=== PATIENT | male | born 1970 | race Caucasian/White ===

== ENCOUNTER 2021-08-23 00:22 | Emergency (ER) | payer OTHER, SELFPAY ==
[2021-08-22 23:30] VITALS: BP 96/56; PULSE 74; RESP 16; TEMP 36.8; O2SAT 100
--- NOTE | 2021-08-23 00:20 | ED.GENADULT ---
HPI - General Adult General Chief complaint: Unspecified Stated complaint: toe pain Source: patient Mode of arrival: ambulatory Limitations: no limitations History of Present Illness HPI narrative: 50-year-old male presents today with complaints of blisters on his feet. Patient is homeless. Patient is a history of diabetes but has been off of his meds due to sugars being within normal limits. Patient previously seen another facility this morning. Patient states they did nothing for him and discharged him. Related Data Home Medications Medication Instructions Recorded Confirmed No Home Medications 08/22/21 Allergies Allergy/AdvReac Type Severity Reaction Status Date / Time fentanyl AdvReac Hives Verified 08/22/21 23:32 ketorolac [From Toradol] AdvReac Hives Verified 08/22/21 23:32 Review of Systems Review of Systems: CONSTITUTIONAL: Denies fever, chills, or sweats. EYES: Denies visual changes, redness, or discharge. ENT: Denies rhinorrhea, congestion, sore throat, or otalgia. CARDIOVASCULAR: Denies chest pain, palpitations, or edema. RESPIRATORY: Denies cough or dyspnea. GASTROINTESTINAL: Denies abdominal pain, nausea, vomiting, or diarrhea. GENITOURINARY: Denies dysuria or hematuria. SKIN: Denies rash or itching. MUSCULOSKELETAL: Pain to bilateral feet with blisters. Denies back pain, joint pain, or myalgia. NEUROLOGIC: Denies headache, numbness, dizziness, or weakness. PSYCHIATRIC: Denies anxiety or depression. Exam Narrative: GENERAL: Well-appearing, well-nourished, and in no acute distress. HEAD: Normocephalic, atraumatic. EYES: PERRLA and EOMI. ENT: Nares clear, no rhinorrhea or epistaxis. Mucous membranes moist. Oropharynx without tonsillar hypertrophy exudate or other lesions. Bilateral TMs pearly conley nonbulging NECK: Supple. No adenopathy or masses. No carotid bruits or JVD CHEST: Clear to auscultation. No respiratory distress. No wheezes rales or rhonchi HEART: Regular rate and rhythm. No murmur heard. Normal peripheral pulses. ABDOMEN: Soft, nontender, nondistended, normal active bowel sounds. EXTREMITIES: Normal range of motion. No edema. Bilateral feet with small round blisters noted to the balls of the feet. Blisters are not fluid-filled and appear to be deeper under the dermis. Patient with pain on palpation. No erythema, or drainage. SKIN: Warm, dry, no rash. NEURO: No focal deficits. Alert and oriented x3. PSYCH: Normal mood and affect. Course Course Emergency Course: DuoDERM applied to wounds to help with comfort. Patient to be discharged home. Vital Signs Vital signs: Vital Signs Temperature 36.8 C 08/22/21 23:30 Pulse Rate 74 08/22/21 23:30 Respiratory Rate 16 08/22/21 23:30 Blood Pressure 96/56 L 08/22/21 23:30 Pulse Oximetry 100 08/22/21 23:30 Oxygen Delivery Room Air 08/22/21 23:30 Temperature 36.8 C 08/22/21 23:30 Pulse Rate 74 08/22/21 23:30 Respiratory Rate 16 08/22/21 23:30 Blood Pressure 96/56 L 08/22/21 23:30 Pulse Oximetry 100 08/22/21 23:30 Oxygen Delivery Room Air 08/22/21 23:30 Medical Decision Making MDM Narrative Medical decision making narrative: 50-year-old male HPI as noted. Feet without signs of infection. Multiple blisters that are under the dermis and intact. No open skin noted to balls of feet. Several small scabs noted to toes. Will dress wounds with DuoDERM to help with healing and support. Patient to be discharged. Differential Diagnosis Differential Diagnosis: Blisters, cellulitis, feet pain Vital Signs Vital Signs: Vital Signs Temperature 36.8 C 08/22/21 23:30 Pulse Rate 74 08/22/21 23:30 Respiratory Rate 16 08/22/21 23:30 Blood Pressure 96/56 L 08/22/21 23:30 Pulse Oximetry 100 08/22/21 23:30 Oxygen Delivery Room Air 08/22/21 23:30 Temperature 36.8 C 08/22/21 23:30 Pulse Rate 74 08/22/21 23:30 Respiratory Rate 16 08/22/21 23:30 Blood Pressure 96/56
--- NOTE | 2021-08-23 00:25 | PC.NURSE ---
pt continually screaming at rn and dariusz child. pt refusing to stay in the room and yelling that tiffany lets me walk where ever i want to .
--- NOTE | 2021-08-23 01:03 | PC.NURSE ---
jalyn caballero contacted to provide a ride home for this patient.
--- NOTE | 2021-08-23 01:09 | PC.NURSE ---
pt has a ride eta of 0130 am .
== END 2021-08-23 01:11 | disposition home or self-care (01) ==
LOC: ANHED 00:32
PROVIDERS: Emergency Provider Nurse Practitioner Family
DX: R23.8 Other skin changes (principal); E11.9 Type 2 diabetes mellitus without complications; Z59.00 Homelessness unspecified
CPT/HCPCS: 99281

== ENCOUNTER 2021-08-23 03:33 | Emergency (ER) | payer OTHER, SELFPAY ==
[2021-08-23 03:35] VITALS: BP 100/56; PULSE 74; RESP 18; TEMP 37.1; O2SAT 99
--- NOTE | 2021-08-23 03:35 | PC.NURSE ---
At approx 0300 pt became agitated while waiting for [employer] ride that never showed up (pt was seen for toe pain and d/c to home). Pt cursing loudly that he wants to be taken to [facility]. Pt did bang on window and chairs with hand and told transportation security screener that he was not afraid to fight him.Pt demanding food and drink which were brought to him a short time later. After food was provided he began cursing again stating that he wanted a real meal . Pt would not settle down and stated that I will just slice my wrists then or you can just call the PD to come get me . [place] [employer] arrived to speak with pt as he would not sit down or calm down. When PD stated that they could not take him as far as [place] he stated I will just hang myself then . Pt mostly rambling incoherently to himself and staff. Pt was checked back into ED with complaint of SI.
--- NOTE | 2021-08-23 03:54 | ECG_ITS ---
Measurements Intervals [place] Rate: 67 P: 83 MS: 166 QRS: 53 QRSD: 121 T: 64 QT: 496 QTc: 527 Interpretive Statements SINUS RHYTHM RV CONDUCTION ABNORMALITY BORDERLINE ECG NO PREVIOUS ECG AVAILABLE FOR COMPARISON Electronically Signed On 08-24-2021 16:13:04 CDT by Allan Demarco M.D.
--- NOTE | 2021-08-23 03:55 | ED.GENADULT ---
HPI - General Adult General Chief complaint: Psychiatric Symptoms <Zana Bhatti MD - Last Filed: 08/23/21 08:09> Stated complaint: SI thoughts <Zana Bhatti MD - Last Filed: 08/23/21 08:09> Time Seen by Provider: 08/23/21 03:45 <Zana Bhatti MD - Last Filed: 08/23/21 08:09> History of Present Illness HPI narrative: 50-year-old male presenting to the emergency department for evaluation due to increased suicidal ideations. Patient is homeless and has longstanding history of heroin and meth abuse. Patient had a recent hospitalization for suicidal ideation a few weeks ago. Patient states he is currently suicidal and is also seeking rehabilitation. Patient's last substance abuse rehabilitation was approximately 10 years ago. Patient's last use of methamphetamine was approximately 4 days ago. Earlier in the day patient was also seen in the emergency department for evaluation of blisters to his feet. Patient was being disruptive in the waiting room and when police came to escort the patient from the emergency department he stated he was suicidal. <Zana Bhatti MD - Last Filed: 08/23/21 08:09> Related Data Home medications: Home Medications Medication Instructions Recorded Confirmed oxycodone 5 mg tablet 5 mg PO Q6H PRN Pain 08/23/21 08/23/21 quetiapine 200 mg tablet 200 mg PO HS 08/23/21 08/23/21 <Zana Bhatti MD - Last Filed: 08/23/21 08:09> Allergies/adverse reactions: Allergies Allergy/AdvReac Type Severity Reaction Status Date / Time fentanyl AdvReac Hives Verified 08/22/21 23:32 ketorolac [From Toradol] AdvReac Hives Verified 08/22/21 23:32 <Zana Bhatti MD - Last Filed: 08/23/21 08:09> Review of Systems Review of Systems: CONSTITUTIONAL: Denies fever, chills, or sweats. EYES: Denies visual changes, redness, or discharge. ENT: Denies rhinorrhea, congestion, sore throat, or otalgia. CARDIOVASCULAR: Denies chest pain, palpitations, or edema. RESPIRATORY: Denies cough or dyspnea. GASTROINTESTINAL: Denies abdominal pain, nausea, vomiting, or diarrhea. GENITOURINARY: Denies dysuria or hematuria. SKIN: Denies rash or itching. MUSCULOSKELETAL: Denies back pain, joint pain, or myalgia. NEUROLOGIC: Denies headache, numbness, or weakness. PSYCHIATRIC: Reports suicidal ideation <Zana Bhatti MD - Last Filed: 08/23/21 08:09> [facility] Social History Social History: Social History Substance use type: heroin and amphetamines <Zana Bhatti MD - Last Filed: 08/23/21 08:09> Exam Narrative: APPEARANCE: Well appearing, no pain, no distress, well-nourished. HEAD: normocephalic, atraumatic. EYES: PERRLA/EOMI, conjunctivae clear. NOSE: Normal no drainage NECK: Supple. No adenopathy, no masses. RESPIRATORY: Airway patent, respirations nonlabored. Clear to auscultation bilaterally, no rales, rhonchi, wheezing. CARDIOVASCULAR: Regular rate and rhythm without murmurs rubs or gallops. ABDOMINAL: Soft, nontender, nondistended, normal bowel sounds MUSCULOSKELETAL: Moves all extremities. Strength/ROM intact, No edema, No calf tenderness. NEURO: Alert. Cranial nerves II through XII intact. Grossly intact SKIN: Warm, dry. Normal Color PSYCHIATRIC: Depressed affect <Zana Bhatti MD - Last Filed: 08/23/21 08:09> Course Course Emergency Course: Patient's potassium was patient's hemoglobin is 9.2. Patient has platelets of 37 but denies any active bleeding. Patient reports he does have a history of anemia and is supposed to be on iron pills but has not been taking them. Patient is unsure of any prior history of thrombocytopenia. Patient is unsure of what medications he supposed to be taking but denies taking any medications at all currently. Patient had a potassium of 3.2 which was replaced orally. Patient did test positive for amphetamines and cannabinoids. <Zana Bhatti MD - Last Filed: 08/02
[2021-08-23 04:25] LABS: Basophils Percent Auto 0.5 % (0.2-1.2); Eosinophils Absolute Auto 0.1 K/mm3 (0-0.3); Eosinophils Percent Auto 5.7 % (0-4.4); Hemoglobin 9.2 g/dL (14.0-18.0); Immature Granulocyte Absolute 0.01 K/mm3 (0.00-0.031); Immature Granulocyte Percent A 0.5 % (0-0.5); Immature Platelet Fraction Pct 3.3 % (0.9-11.2); Lymphocytes Absolute Auto 0.42 K/mm3 (0.9-3.2); Lymphocytes Percent Auto 19.9 % (18.3-44.2); Mean Corpuscular HGB Conc 31.7 g/dl (32-36); Mean Corpuscular Hemoglobin 27.5 pg (26-34); Mean Corpuscular Volume 86.8 fl (80-100); Mean Platelet Volume 9.4 fl (7.4-10.4); Monocytes Absolute Auto 0.3 K/mm3 (0.1-0.6); Monocytes Percent Auto 11.8 % (2.6-8.5); Neutrophils Absolute Auto 1.3 K/mm3 (1.3-6.7); Neutrophils Percent Auto 61.6 % (45.5-73.1); Platelet Count Result 37 k/mm3 (150-375); Red Blood Count 3.34 M/mm3 (4.6-6.20); White Blood Count 2.1 K/mm3 (4.5-10.0)
[2021-08-23 04:42] LABS: Acetaminophen < 10 ug/mL (10-30); Ethanol < 10 mg/dL (<10); Magnesium 1.9 mg/dL (1.6-2.3); Salicylate < 1.0 mg/dL (2-20)
[2021-08-23 04:43] LABS: Alanine Aminotransferase 34 U/L (6-50); Albumin Level 3.3 g/dL (3.5-5.1); Alkaline Phosphatase 79 U/L (38-126); Anion Gap 6 mmol/L (8-16); Aspartate Amino Transferase 47 U/L (17-59); Blood Urea Nitrogen 11 mg/dL (9-20); Calcium 8.2 mg/dL (8.4-10.2); Carbon Dioxide 26 mmol/L (22-30); Chloride 107 mmol/L (98-107); Estimated CRCL calculation 117 ml/min; Estimated Glomerular Filt Rate > 60; Glucose 115 mg/dL (65-110); Potassium 3.2 mmol/L (3.4-5.0); Sodium 139 mmol/L (137-145)
[2021-08-23 05:19] LABS: Thyroid Stimulating Hormone 0.935 uIU/mL (0.465-4.680)
[2021-08-23] MEDS: POTASSIUM CHLORIDE 20 MEQ PACKET (FOR LIQUID) 40 MEQ PO (05:42)
[2021-08-23 05:54] LABS: Appearance Urine Clear (Clear); Bilirubin Urine 1+ (Negative); Blood Urine Negative (Negative); Color Urine Yellow (Yellow); Glucose Urine UA Negative (Negative); Ketones Urine Trace mg/dL (Negative); Leukocyte Esterase Ur Negative LEU/UL (Negative); Nitrate Urine Negative (Negative); Protein Urine Trace mg/dL (Negative); Specific Grav Ur 1.025 (1.001-1.035)
[2021-08-23 06:08] LABS: Bacteria Urine Trace /hpf; Barbiturate Screen Urine Negative (Negative); Benzodiazepines Screen Urine Negative (Negative); Mucus Urine Few /lpf; RBC Urine 0-2 /hpf (0-2); Squamous Epithelial Cell Urine Rare /hpf (Few); WBC Urine 0-3 /hpf
[2021-08-23 06:09] LABS: Cannabinoid Screen Urine Positive (Negative); Cocaine Screen Urine Negative (Negative); Methadone Screen Urine Negative (Negative); Opiate Screen Urine Negative (Negative); Phencyclidine Screen Urine Negative (Negative)
[2021-08-23 06:25] LABS: Add Urine Microscopic? YES
[2021-08-23 06:44] LABS: Amphetamine Screen Urine Positive (Negative)
--- NOTE | 2021-08-23 08:00 | PC.NURSE ---
patient yelling in room about his breakfast tray not being right and that he cannot eat pancakes with his hands. Patient talked with and deescalated, new breakfast ordered.
[2021-08-23 08:31] LABS: SARS-CoV-2 RNA PCR Positive
--- NOTE | 2021-08-23 18:30 | PC.NURSE ---
patient yelling that if he does not get specific pain medications that he will Get fentanyl and kill himself with it
--- NOTE | 2021-08-23 18:30 | PC.NURSE ---
Patient found to be yelling in room and upset that he is not getting his pain medications. patient's empty pill bottle found in bag but cannot confirm if the script is up to date or any other medications he takes due to him stating that they are in his other bag . Patient also yelling that his liver is and that he cannot take tylenol at all. patient yelling more at not getting a meal for two days. Patient was given breakfast, lunch and dinner today through the ED. patient cussing and yelling at EDP and this RN. educational technology coordinator aware.
[2021-08-23] MEDS: LORazepam (*CRX) 0.5 MG TABLET PO (19:05)
--- NOTE | 2021-08-23 19:12 | PC.NURSE ---
Pt requesting to speak with ferry terminal supervisor at this time. pt verbalized not being suicidal and wanting discharged. ERP Dr. Brooks notified and said to contact crisis. If crisis deems him safe, he can be discharged. Crisis has been contacted and will have someone call us back.
--- NOTE | 2021-08-23 20:22 | PC.NURSE ---
Crisis workers here at this time to evauate Pt. Pt just finally stopped yelling obcenitiesand being tearfull.
--- NOTE | 2021-08-23 21:33 | PC.NURSE ---
Pt after speaking with Environmental Science Program Director. Pt was made aware he was being D/c, Pt states he is going outside the front of the Hospital on camera find a rock and slit both his wrist. additionally Pt requested more food. A sandwich and chips were provided.
== END 2021-08-23 21:58 | disposition home or self-care (01) ==
PROVIDERS: Emergency Medicine; Emergency Provider Emergency Medicine
DX: R45.851 Suicidal ideations (principal); F32.A Depression, unspecified; U07.1 COVID-19; R94.31 Abnormal electrocardiogram [ECG] [EKG]; Z59.00 Homelessness unspecified
CPT/HCPCS: 36415; 80053; 80307; 81001; 83735; 84443; 85025; 85055; 93005; 99284; A9270; C9803; U0003; U0005